=== PATIENT | female | born 1990 | race Caucasian/White ===

== ENCOUNTER 2021-01-02 11:53 | Outpatient (CLI) | payer BC | END 2021-01-02 12:48 | disposition home or self-care (01) | LOC: GENOP 11:53 | DX: O42.913 Preterm premature rupture of membranes, unspecified as to length of time between rupture and onset of labor, third trimester (principal); Z3A.36 36 weeks gestation of pregnancy; O99.513 Diseases of the respiratory system complicating pregnancy, third trimester; J45.909 Unspecified asthma, uncomplicated; O23.43 Unspecified infection of urinary tract in pregnancy, third trimester; O99.891 Other specified diseases and conditions complicating pregnancy; N80.9 Endometriosis, unspecified; R11.0 Nausea | CPT/HCPCS: 59025; 83518 ==

== ENCOUNTER → 2021-01-12 | Outpatient (CLI) | payer BC ==
[~2021-01-12] MED LIST: DOCUSATE SODIU100 MG PO; HYDROCODON-ACE1 EAC4 PO; IBUPROFEN600 MG PO; PRENATABS FA T1 EACH PO
== END ==
LOC: GENOP 22:00
DX: O47.1 False labor at or after 37 completed weeks of gestation (principal); O21.9 Vomiting of pregnancy, unspecified; Z3A.38 38 weeks gestation of pregnancy
CPT/HCPCS: 81001; G0463

== ENCOUNTER 2021-01-17 13:23 | Outpatient (CLI) | payer MEDICAID ==
[2021-01-17 14:25] LABS: HEMOGLOBIN 11.2 gm/dl (12.3-15.3); RED BLOOD COUNT 4.07 M/UL (4.00-5.10)
[2021-01-19] MEDS ORDERED: PRENATABS FA T1 EACH PO (06:13)
[2021-01-19] MEDS ORDERED: HYDROCODON-ACE1 EAC4 PO (08:05)
[2021-01-19] MEDS ORDERED: DOCUSATE SODIU100 MG PO (08:05)
[2021-01-19] MEDS ORDERED: IBUPROFEN600 MG PO (08:05)
== END 2021-01-18 14:26 | disposition home or self-care (01) ==
LOC: GENOP 13:23
PROVIDERS: Obstetrics & Gynecology
DX: Z53.8 Procedure and treatment not carried out for other reasons (principal)
CPT/HCPCS: 36415; 81001; 85025

== ENCOUNTER 2021-01-19 05:16 | Inpatient (IN) | payer MEDICAID ==
[~2021-01-19] VITALS: Ht 167.6 cm; Wt 124.7 kg
[2021-01-19] MEDS ORDERED: PRENATABS FA T1 EACH PO (06:13)
[2021-01-19] MEDS ORDERED: HYDROCODON-ACE1 EAC4 PO (08:05)
[2021-01-19] MEDS ORDERED: DOCUSATE SODIU100 MG PO (08:05)
[2021-01-19] MEDS ORDERED: IBUPROFEN600 MG PO (08:05)
[2021-01-20 07:05] LABS: HEMOGLOBIN 9.2 gm/dl (12.3-15.3)
== END 2021-01-20 14:19 | disposition home or self-care (01) | DRG 788 ==
LOC: OB 05:16
PROVIDERS: ADMIT Obstetrics & Gynecology
PROC: 4A1HXCZ Monitoring of Products of Conception, Cardiac Rate, External Approach (ICD-10-PCS; 2021-01-19)
PROC: 10D00Z1 Extraction of Products of Conception, Low, Open Approach (ICD-10-PCS; principal; 2021-01-19 07:30)
DX: O36.63X0 Maternal care for excessive fetal growth, third trimester, not applicable or unspecified (principal); Z3A.39 39 weeks gestation of pregnancy; Z37.0 Single live birth; Z20.822 Contact with and (suspected) exposure to COVID-19
CPT/HCPCS: 36415; 81001; 82800; 85014; 85018; 85025; C9113; J0690; J1885; J2210; J2274; J2405; J2590; J3010; J7120; U0003